=== PATIENT | male | born 1965 | race Caucasian/White ===

== ENCOUNTER → 2017-10-31 | Outpatient (CLI) | payer OTHER ==
[~2017-10-31] VITALS: Ht 172.7 cm; Wt 97.5 kg
[~2017-10-31] MED LIST: LEXAPRO10 MG PO; LEXAPRO20 MG PO; LIPITOR40 MG PO; PROTONIX40 MG PO; WELLBUTRIN SR100 MG PO
== END | disposition home or self-care (01) ==
LOC: AMB 11:15
DX: Z12.11 Encounter for screening for malignant neoplasm of colon (principal); R13.10 Dysphagia, unspecified; K64.8 Other hemorrhoids; Z88.8 Allergy status to other drugs, medicaments and biological substances
CPT/HCPCS: 88305; J2250